=== PATIENT | female | born 1955 | race Caucasian/White ===

== ENCOUNTER 2016-11-27 17:10 | Emergency (ER) | payer OTHER ==
[2016-11-27] MEDS ORDERED: IBUPROFEN 600 MG TABLET PO ONE (17:38)
[2016-11-27] MEDS ORDERED: ACETAMINOPHEN 325 MG TABLET PO ONE (17:44)
[2016-11-27] MEDS ORDERED: OSELTAMIVIR PHOSPHATE 75 MG CAPSULE PO ONE (18:22)
--- NOTE | 2016-11-27 18:35 | ER NURSING DOCUMENTATION ---
Nurse's Notes [facility] Name:Nadja Osorio Age:61 yrs Sex:Female :1955 Arrival Date:11/27/2016 Time:17:10 Bed4 Private MD: Diagnosis:Influenza Presentation: 11/27 17:17 Presenting complaint: Patient states: top of head hurts, sinus and neck hurts. cb Transition of care: Home. Notified ED Physician of patient's arrival and CC Dr. Bales notified. 17:17 Method Of Arrival: Private Vehicle cb 17:17 Acuity: RHIANNA 4 cb 17:37 Resp Distress? No respiratory distress is noted at this time. cb Triage Assessment: 17:38 General: Appears uncomfortable, well groomed, Behavior is cooperative. Pain: Complains cb of pain in forehead, right frontal area and right base of the skull Pain currently is 10 out of 10 on a pain scale. EENT: Reports nasal congestion. Neuro: Level of Consciousness is awake, alert, Oriented to person, place, time, event. Cardiovascular: Pulses are 2+ in left radial artery. Respiratory: Airway is patent Trachea midline Breath sounds are clear in right upper lobe, left upper lobe, right middle lobe, left lower lobe and right lower lobe Reports sputum yellow in color. GI: Reports diarrhea, tolerance of fluids, tolerance of food. : No deficits noted. Derm: No deficits noted. Musculoskeletal: Reports pain in forehead, left frontal area and left base of the skull. Historical: - Allergies: No known drug Allergies; - Home Meds: 1. None 2. extra strength excedrin (Last dose: 11/26/2016 16:00) - PMHx: None; - PSHx: Cholecysectomy; - Tetanus: < 10 years. - Ebola Screening: : Patient negative for fever greater than or equal to 101.5 degrees Fahrenheit, and additional compatible Ebola Virus Disease symptoms. Patient denies exposure to infectious person. Patient denies travel to an Ebola-affected area in the 21 days before illness onset. No symptoms or risks identified at this time. . - Immunization history: Flu Vaccine None. - Social history: Smoking status: Patient states was never smoker of tobacco. Screenin:40 Infectious Disease Risk None. Abuse screen: Denies threats or abuse. Denies injuries cb from another. Nutritional screening: No deficits noted. Vital Signs: 17:22 BP 116 / 68; Pulse 105; Resp 24; Temp 102.2(TE); Pulse Ox 93% on R/A; Weight 52.62 kg; cb Height 5 ft. 1 in. (154.94 cm); Pain 9/10; 18:25 Temp 100.1; cb 17:22 Body Mass Index 21.92 (52.62 kg, 154.94 cm) cb ED Course: 17:13 Patient arrived in ED. ama 17:16 Staci Cotter, RN is Primary Nurse. cb 17:18 Triage completed. cb 17:19 Nabil Bales MD is Attending Physician. nm 17:41 Flu Swab done. cb 17:41 Valuables Remains with patient Patient has correct armband on for positive cb identification. Bed in low position. Call light in reach. Diet: Patient given snack. Patient given juice. Tolerated well. Administered Medications: 17:30 Not Given (Patient Refused): Ibuprofen 600 mg PO once cb 17:41 Drug: Tylenol 975 mg; Route: PO; cb 18:36 Follow up: Response: Temperature is decreased cb 18:10 Drug: Tamiflu 75 mg; Route: PO; cb 18:36 Follow up: Response: No adverse reaction cb Outcome: 18:11 Discharge ordered by . nm 18:30 Discharged to home ambulatory, with friend. cb 18:30 Condition: stable 18:30 Discharge Assessment: Patient awake, alert and oriented x 3. No cognitive and/or functional deficits noted. Patient verbalized understanding of disposition instructions. 18:30 Discharge instructions given to patient, Instructed on discharge instructions, follow up and referral plans. medication usage, Demonstrated understanding of instructions, medications, Prescriptions given X 1. 18:35 Patient left the ED. cb 03 10:41 Discharge F/U Call: Spoke with: other: Name: call from [facility] pharmacy stating they nf did not receive faxed prescription due to fax machine error on their side; verbal order for tamilfu given over phone Signatures: Staci Cotter, LIZ HILL Nilam Zapata RN RN nf Chew, Scott, MD MD nm Edmar Whittington, Reg Reg ama
--- NOTE | 2016-11-27 18:35 | ER PHYSICIAN DOCUMENTATION ---
Physician Documentation [facility] Name:Nadja Osorio Age:61 yrs Sex:Female :1955 Arrival Date:11/27/2016 Time:17:10 Bed4 Private MD: Nabil Castle Disposition: 11/27/16 18:11 Discharged to Home/Self Care. Impression: Influenza. - Condition is Good. - Discharge Instructions: INFLUENZA (Adult). - Prescriptions for Tamiflu 75 mg Oral Capsule - take 1 capsule by ORAL route every 12 hours for 5 days; 10 capsule. - Medical Reconciliation form form. - Follow up: Private Physician; When: As needed; Reason: Worsening of condition. - Problem is new. - Symptoms have improved. HPI: 11/27 18:10 This 61 yrs old Female presents to ER via Private Vehicle with complaints of sc Dizziness, Cough, Sinus Congestion. 18:10 The patient or guardian reports cough, flu symptoms, low-grade fever, myalgias, no sc appetite. Onset: The symptom(s)/episode began/occurred 3 day(s) ago. Severity of symptoms: At their worst the symptoms were moderate. Modifying factors: The symptoms are alleviated by Associated signs and symptoms: The patient has no apparent associated signs or symptoms. Historical: - Allergies: No known drug Allergies; - Home Meds: 1. None 2. extra strength excedrin (Last dose: 11/26/2016 16:00) - PMHx: None; - PSHx: Cholecysectomy; - Tetanus: < 10 years. - Ebola Screening: : Patient negative for fever greater than or equal to 101.5 degrees Fahrenheit, and additional compatible Ebola Virus Disease symptoms. Patient denies exposure to infectious person. Patient denies travel to an Ebola-affected area in the 21 days before illness onset. No symptoms or risks identified at this time. . - Immunization history: Flu Vaccine None. - Social history: Smoking status: Patient states was never smoker of tobacco. ROS: 18:10 Eyes: Negative for injury, pain, redness, and discharge. sc ENT: Negative for injury, pain, and discharge. Neck: Negative for injury, pain, and swelling. Cardiovascular: Negative for chest pain, palpitations, and edema. Abdomen/GI: Negative for abdominal pain, nausea, vomiting, diarrhea, and constipation. Back: Negative for injury and pain. Skin: Negative for injury, rash, and discoloration. 18:10 Neuro: Negative for headache, weakness, numbness, tingling, and seizure. sc 18:10 Constitutional: Positive for body aches, fatigue, fever. 18:10 Respiratory: Positive for cough. Exam: Constitutional: This is a well developed, well nourished patient who is awake, alert, and in no acute distress. Head/Face: Normocephalic, atraumatic. Eyes: Pupils equal round and reactive to light, extra-ocular motions intact. Lids and lashes normal. Conjunctiva and sclera are non-icteric and not injected. Cornea within normal limits. Periorbital areas with no swelling, redness, or edema. ENT: Nares patent. No nasal discharge, no septal abnormalities noted. Tympanic membranes are normal and external auditory canals are clear. Oropharynx with no redness, swelling, or masses, exudates, or evidence of obstruction, uvula midline. Mucous membranes moist. Cardiovascular: Regular rate and rhythm with a normal S1 and S2. No gallops, murmurs, or rubs. Normal PMI, no JVD. No pulse deficits. Respiratory: Lungs have equal breath sounds bilaterally, clear to auscultation and percussion. No rales, rhonchi or wheezes noted. No increased work of breathing, no retractions or nasal flaring. Back: No spinal tenderness. No costovertebral tenderness. Full range of motion. 18:10 Skin: Warm, dry with normal turgor. Normal color with no rashes, no lesions, and no sc evidence of cellulitis. 18:13 Respiratory: the patient does not display signs of respiratory distress, nh Respirations: normal, Breath sounds: are normal, clear throughout. 18:13 Neuro: Orientation: is normal. nh Vital Signs: 17:22 BP 116 / 68; Pulse 105; Resp 24; Temp 102.2(TE); Pulse Ox 93% on R/A; Weight 52.62 kg; cb Height 5 ft. 1 in. (154.94 cm); Pain 9/10; 18:25 Temp 100.1; cb 17:22 Body Mass Index 21.92 (52.62 kg, 154.94 cm) MDM: 17:19 Patient medically screened. nh 18:11 Differential Diagnosis: Bronchitis Influenza Upper Respiratory Infection Sinusitis. nh Data reviewed: vital signs, nurses notes, and as a result, I will discharge patient. Counseling: I had a detailed discussion with the patient and/or guardian regarding: the historical points, exam findings, and any diagnostic results supporting the discharge/admit diagnosis, the need for outpatient follow up, to return to the emergency department if symptoms worsen or persist or if there are any questions or concerns that arise at home. 11/27 17:48 Order name: INFLUENZA A/B; Complete Time: 18:10 EDMS 11/27 18:09 Interpretation: Abnormal: INFLUENZA A/B INF A POS, B NEG. sc Dispensed Medications: 17:30 Not Given (Patient Refused): Ibuprofen 600 mg PO once cb 17:41 Drug: Tylenol 975 mg; Route: PO; cb 18:36 Follow up: Response: Temperature is decreased cb 18:10 Drug: Tamiflu 75 mg; Route: PO; cb 18:36 Follow up: Response: No adverse reaction cb Signatures: Staci Cotter RN RN cb Chew, Scott, MD MD nh
== END 2016-11-27 18:35 | disposition home or self-care (01) ==
LOC: ER 17:10
DX: J11.1 Influenza due to unidentified influenza virus with other respiratory manifestations (principal)
CPT/HCPCS: 87449; 99283